=== PATIENT | female | born 1935 | race Caucasian/White ===

== ENCOUNTER 2018-08-31 16:00 | Inpatient (IN) | payer MEDICARE ==
[2018-08-31] MEDS ORDERED: Acetaminophen TAB* 325 MG PO PRN (16:19)
[2018-08-31] MEDS ORDERED: Ondansetron INJ* 2 MG/ML VIAL IV PRN (16:19)
[2018-08-31] MEDS ORDERED: Phytonadione Oral Solution* 5 MG/25 ML UDC PO ONE (16:35)
[2018-08-31] MEDS ORDERED: Artificial Tears* 15 ML BTL BOTH EYES PRN (16:38)
[2018-08-31] MEDS ORDERED: Ondansetron TAB* 4 MG PO PRN (16:38)
[2018-08-31] MEDS ORDERED: traMADol TAB* 50 MG PO PRN (16:38)
[2018-08-31] MEDS: Pantoprazole IV* 40 MG IV SCH (21:43)
[2018-09-01] MEDS ORDERED: Furosemide IV* 10 MG/ML 2 ML VIAL (20 MG) IV ONE (03:00)
[2018-09-01 04:53] LABS: ABS Basophils 0 10^3/ul (0-0.2); ABS Eosinophils 0 10^3/ul (0-0.6); ABS Lymphocytes 0.2 10^3/ul (1.0-4.8); ABS Monocytes 0.3 10^3/ul (0-0.8); ABS Neutrophils 2.2 10^3/ul (1.5-7.7); ABS Nucleated RBC 0 10^3/ul; Eosinophil % 0.6 %; Hematocrit 23 % (33-41); Hemoglobin 7.9 g/dL (12.0-16.0); Lymphocyte % 7.3 %; Mean Corpuscular HGB Conc 34 g/dL (31-36); Mean Corpuscular Hemoglobin 30 pg (27-31); Mean Corpuscular Volume 89 fL (80-97); Nucleated Red Blood Cells % 0.1; Platelet Count 193 10^3/uL (150-450); Red Blood Count 2.61 10^6 /uL (3.70-4.87); Red Cell Distribution Width 15 % (10.5-15); White Blood Count 2.8 10^3/uL (3.5-10.8)
[2018-09-01 04:58] LABS: INR 2.59 (0.77-1.02)
[2018-09-01 05:09] LABS: Albumin 3.5 g/dL (3.2-5.2); Albumin/Globulin Ratio 1.8 (1-3); BUN/Creatinine Ratio 13.1 (8-20); Calcium 8.1 mg/dL (8.6-10.3); EGFR African American 59.3 (>60); Globulin 1.9 g/dL (2-4); Total Bilirubin 1.6 mg/dL (0.2-1.0); Total Protein 5.4 g/dL (6.4-8.9)
[2018-09-01] MEDS: Levothyroxine TAB* 75 MCG TAB PO SCH ×2 (05:31→05:33)
[2018-09-01] MEDS: Pantoprazole IV* 40 MG IV SCH ×2 (08:12→22:18)
[2018-09-01] MEDS ORDERED: Phytonadione Oral Solution* 5 MG/25 ML UDC PO ONE (08:20)
[2018-09-01] MEDS: KCL 10 MEQ/50 ML IVPREMIX* 10 MEQ/50 ML BAG IV SCH ×3 (09:38→13:10)
[2018-09-01] MEDS: Losartan TAB* 25 MG PO SCH (09:39)
--- NOTE | 2018-09-01 10:23 | PN ---
Progress Note - Progress Note Date of Service: 09/01/18 SOAP: Subjective: [Patient reports she is feeling relatively well this am. No BMs overnight. No abd pain. First unit of blood before it was completely infused, she only received ~50% of the volume. The second unit was completed. So she received a total of ~1.5UPRBCs overnight.] Objective: [ Laboratory Results - last 24 hr 08/31/18 09/01/18 09/01/18 17:25 04:43 04:43 WBC 2.8 L RBC 2.61 L Hgb 7.9 L Hct 23 L MCV 89 MCH 30 MCHC 34 RDW 15 Plt Count 193 MPV 7.0 L Neut % (Auto) 80.8 Lymph % (Auto) 7.3 Robertson % (Auto) 11.0 Eos % (Auto) 0.6 Baso % (Auto) 0.3 Absolute Neuts (auto) 2.2 Absolute Lymphs (auto) 0.2 L Absolute Monos (auto) 0.3 Absolute Eos (auto) 0 Absolute Basos (auto) 0 Absolute Nucleated RBC 0 Nucleated RBC % 0.1 INR (Anticoag Therapy) Sodium 136 Potassium 3.0 L Chloride 101 Carbon Dioxide 30 Anion Gap 5 BUN 14 Creatinine 1.07 H Est GFR ( Amer) 59.3 Est GFR (Non-Af Amer) 49.0 BUN/Creatinine Ratio 13.1 Glucose 128 H Calcium 8.1 L Magnesium 2.0 Total Bilirubin 1.60 H AST 30 ALT 18 Alkaline Phosphatase 87 Total Protein 5.4 L Albumin 3.5 Globulin 1.9 L Albumin/Globulin Ratio 1.8 Blood Type A Positive Antibody Screen Negative Crossmatch See Detail 09/01/18 04:43 WBC RBC Hgb Hct MCV MCH MCHC RDW Plt Count MPV Neut % (Auto) Lymph % (Auto) Robertson % (Auto) Eos % (Auto) Baso % (Auto) Absolute Neuts (auto) Absolute Lymphs (auto) Absolute Monos (auto) Absolute Eos (auto) Absolute Basos (auto) Absolute Nucleated RBC Nucleated RBC % INR (Anticoag Therapy) 2.59 H Sodium Potassium Chloride Carbon Dioxide Anion Gap BUN Creatinine Est GFR ( Amer) Est GFR (Non-Af Amer) BUN/Creatinine Ratio Glucose Calcium Magnesium Total Bilirubin AST ALT Alkaline Phosphatase Total Protein Albumin Globulin Albumin/Globulin Ratio Blood Type Antibody Screen Crossmatch Acetaminophen (Tylenol Tab*) 650 mg PO Q4H PRN PRN Reason: FEVER/PAIN Furosemide (Lasix Iv*) 20 mg IV Q3H [facility] Stop: 09/01/18 14:01 Potassium Chloride (Potassium Chloride 10 Meq/50 Ml Ivpremix*) 10 meq in 50 mls @ 50 mls/hr IV Q1H [facility] Stop: 09/01/18 11:59 Last Admin: 09/01/18 09:38 Dose: 50 mls/hr Levothyroxine Sodium (Synthroid Tab*) 75 mcg PO 0600 [facility] Last Admin: 09/01/18 05:33 Dose: Not Given Losartan Potassium (Cozaar Tab*) 50 mg PO DAILY [facility] Last Admin: 09/01/18 09:39 Dose: 50 mg Ondansetron HCl (Zofran Inj*) 4 mg IV Q4H PRN PRN Reason: NAUSEA/VOMITING Pantoprazole Sodium (Protonix Iv*) 40 mg IV BID [facility] Last Admin: 09/01/18 08:12 Dose: 40 mg Polyvinyl Alcohol (Polyvinyl Alcohol 1.4% Opth*) 1 drop BOTH EYES Q2HR PRN PRN Reason: DRY EYE Last Admin: 08/31/18 21:43 Dose: 1 drp Tramadol HCl (Ultram*) 50 mg PO BID PRN PRN Reason: PAIN Vital Signs: Temp Pulse Resp BP Pulse Ox 96.5 F 107 16 127/69 99 09/01/18 07:39 09/01/18 07:39 09/01/18 08:00 09/01/18 07:39 09/01/18 07:39 Exam: Gen: Pale 82 yo female in NAD, sitting up in bed HEENT: MMM CV: RRR, no m/r/g Resp: CTA, no w/c/r Abd: soft, nonTTP with active bowel sounds Ext: trace LE edema bilaterally] Assessment: [82 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 GI bleed - received 1.5U PRBCs with appropriate response - INR improved by still 2.5 this am, will reverse further with FFP and additional vitamin K - EGD pending for this afternoon assuming her INR improves to at least <2, ideally <1.5 - currently NPO for EGD - cont 40 mg IV Protonix bid 2. Anticoagulation - INR improved from 3.9 to 2.5 with 10 mg vitamin K - give additional 5 mg vitamin K and 2U FFP today - repeat INR this afternoon 3. GIST - holding Gleevec pending results of EGD 4. Diastolic heart failure, chronic - no acute exacerbation Dispo: further treatment/discharge planning will depend on result of EGD]
[2018-09-01] MEDS: Furosemide IV* 10 MG/ML 2 ML VIAL (20 MG) IV SCH ×2 (14:27→19:11)
[2018-09-01 15:29] LABS: INR 1.48 (0.77-1.02)
[2018-09-01] MEDS ORDERED: fentaNYL* 50 MCG/ML 2 ML VIAL (100 MCG VIAL) ONE (16:51)
[2018-09-01] MEDS ORDERED: Midazolam* 1 MG/ML 10 ML VIAL (10 MG) ONE (16:51)
[2018-09-01] MEDS ORDERED: PEG 3000 GI LAVAGE* 1 GALLON PO ONE (17:13)
--- NOTE | 2018-09-01 17:15 | PN ---
Progress Note - Progress Note Date of Service: 09/01/18 Note: GI Brief EGD Note E: minimal irregular GEJ G: gastropathy, likely intestinal metaplasia, not sampled due to concern for bleeding D: normal to Prox Jej. No fresh or old blood on entire exam Rectal: maroon stool Will prep and plan colonoscopy for 09/02/18 Magen Ramirezan DO 09/01/18 [id number]
[2018-09-01] MEDS ORDERED: Furosemide IV* 10 MG/ML 2 ML VIAL (20 MG) ONE (19:09)
--- NOTE | 2018-09-01 21:11 | CONS ---
CC: Dr. Flores CONSULTATION REPORT: DATE OF CONSULT: 09/01/18 REASON FOR CONSULT: Melena, anemia. HISTORY OF PRESENT ILLNESS: This is a pleasant 82-year-old female with a history of GIST, initially diagnosed back in 2000, who has had a complicated course with multiple episodes of reoccurrence and d ebulking surgery done at [facility]. She had been tried on other tyrosine kinase inhibitors includ ing Sutent, but she had horrible effects including fatigue, mouth blisters, and hypertension and coul d not tolerate. She was switched to momelotinib in 2010 and then had pericarditis. Eventually, she w as switched back to Gleevec with a relatively long course. She presented to initially Dr. Flores's off ice on 08/31/18 because of progressive weakness. She states that she was not able to go very far wit hout feeling short of breath. She has had some increasing lower extremity edema, but denies jeniffer or thopnea. She noted that her stool had become black in color over the last week. She denies any iron pills or taking any Pepto-Bismol. She denies any abdominal discomfort. She denies any diarrhea or c onstipation. She occasionally has heartburn, but that seems to be relatively controlled. She denies any dysphagia or odynophagia. She cannot recall the last time that she had an endoscopic evaluation . However, review of records shows an EGD that was done in 2009 for melena that did not show any AVM or bleeding. She also had a colonoscopy without any evidence of overt bleeding. She previously had a capsule endoscopy before that, that did show AVMs. They appeared to be more in the jejunal compon ent based on the timestamps. At this point, she denies any further black in the stool or pain. The remainder of the 14-point review of systems is negative. PAST MEDICAL HISTORY: 1. AFib. 2. AVMs. 3. Cellulitis. 4. GIST. 5. Hypertension. 6. Hyperthyroidism. 7. BHANU, on CPAP. 8. Palpitations. PAST SURGICAL HISTORY: 1. Appendectomy. 2. Thyroid cyst removal. 3. Multiple debulking surgeries for tumor. MEDICATIONS: Home medications include: 1. Acetaminophen. 2. Alpha-E 400 units. 3. Artificial tears. 4. Calcium. 5. Coumadin. 6. Senna. 7. Furosemide. 8. Gleevec. 9. Levothyroxine. 10. Losartan. 11. Ondansetron. 12. Systane. 13. Tramadol. ALLERGIES: Include AZITHROMYCIN and PENICILLIN. FAMILY HISTORY: Father with lymphoma. No GI cancers or inflammatory bowel disease. SOCIAL HISTORY: Prior smoker until 1987. Denies jeniffer alcohol use. PHYSICAL EXAMINATION: Vital Signs: Blood pressure is 109/52, pulse is 86, she is 97% on room air, a febrile. General: Chronically ill-appearing, no acute distress. HEENT: Atraumatic, normocephalic. Pupils equal, round, reactive to light. Conjunctivae slightly pale. Sclerae anicteric. Neck: Supp le without masses. No gross JVD. Cardiovascular: Irregularly irregular. Respiratory: Grossly frankie ar to auscultation. Abdomen: Obese, soft, nontender, nondistended. Bowel sounds positive. Previou s abdominal scars. Extremities: Minimal lower extremity edema. Psych: Appropriate mood and affect. Skin: A few scattered ecchymoses. LABORATORY DATA: Hemoglobin 7.9, platelet count is 193. INR 1.48. Creatinine 1.07. Total bilirubi n 1.6. AST 30, ALT is 18. Albumin 3.5. Occult blood was positive. ASSESSMENT AND PLAN: An 82-year-old female with melena, acute blood loss anemia. 1. Acute blood loss anemia. She has a history of gastrointestinal stromal tumor. She did have a sma ll bowel capsule endoscopy roughly 8 years ago that did show some AVMs, especially within the proxima l portion. I think the consideration is her primary bleeding from her GIST or is this an arterioveno us malformation that is oozing or an additional source. We discussed the risks, benefits, and altern atives and would plan on upper endoscopy to evaluate given the melena that she has. Agree with IV PP I drip, hemoglobin and hematocrit every 6 hours. Keep 2 units of PRBCs on hold. Her INR has been ap propriately reversed from the initial 2.59 to 1.48 after vitamin K and FFP. She is to keep the head of the bed above 30 degrees at all times and keep the patient on oxygen therapy if needed. Further w orkup to be determined. 2. History of gastrointestinal stromal tumor. Has had multiple debulking surgeries. She states the previous surgeon at [place] was unwilling to do any further debulking. She was considering a trial at [facility] in [place], but did not want to travel and is unsure if she wants to pursue that . For the interim, she is continuing her Gleevec and is followed locally. [id number]/[facility] #: [id number]
--- NOTE | 2018-09-02 00:39 | PRO ---
CC: Dr. Chela Krishna; Dr. Salome Jerome PROCEDURE REPORT: DATE OF PROCEDURE: 09/01/18 INDICATION FOR PROCEDURE: Melena. PROCEDURE PERFORMED: Complete esophagogastroduodenoscopy. MEDICATIONS GIVEN: Include: 1. 5 mg IV midazolam. 2. 25 mcg IV fentanyl. DESCRIPTION OF PROCEDURE: After the EGD procedure including the risks, benefits, and alternatives wi th the risks not limited to perforation, surgery, missed lesions, and/or were explained to the patient, written informed consent was obtained, IV medication was given, and a bite block was placed between the teeth. The adult Olympus gastroscope was then inserted into the patient's oropharynx into the tubular esophagus. The tubular esophagus was grossly normal in appearance. The scope was then a dvanced through the lower esophageal sphincter into the stomach. There was evidence of gastropathy a nd some intestinal metaplasia. This was not sampled due to the concern for blood loss. There was no fresh or old blood noted within the stomach on both antegrade and retroflexion views. The scope was then advanced through the widely patent pylorus into the duodenal bulb, C loop, and distal duodenum. This was normal in appearance without any fresh or old blood. I then pushed as deep as I could to likely the proximal jejunum without any evidence of fresh or old blood. No AVMs were seen. The scop e was then removed from the patient. She tolerated the procedure well. She returned to the recover y room in stable condition. IMPRESSION: 1. Complete esophagogastroduodenoscopy. 2. No fresh or old blood on entire exam. 3. Gastropathy. 4. Likely intestinal metaplasia in the stomach. RECOMMENDATIONS: Repeat rectal exam did show maroon stool after the conclusion of the procedure. I discussed the risks, benefits, and alternatives to e valuation. The patient would like to proceed with colonoscopy to evaluate for a potential bleeding so urce. Her INR has been corrected at this time. We will plan on giving her preparation bernarda selby colonoscopy on 09/02/18. [id number]/[facility] #: [id number]
[2018-09-02] MEDS: Levothyroxine TAB* 75 MCG TAB PO SCH (05:26)
--- NOTE | 2018-09-02 07:53 | PN ---
Progress Note - Progress Note Date of Service: 09/02/18 SOAP: Subjective: feels ok this am. better than admission. EGD yesterday unrevealing so planned for colonoscopy this am. completed prep and now just passing yellow liquid. Objective: Vital Signs Temp Pulse Resp BP Pulse Ox 99.4 F 85 20 118/61 99 09/02/18 03:17 09/02/18 03:17 09/02/18 03:17 09/02/18 03:17 09/02/18 03:17 sitting up in nad adentulous dry op regular II/ ABRAHAN cta bl soft obese nt 1+ LE edema to mid meyers A+O x3, grossly nonfocal Acetaminophen (Tylenol Tab*) 650 mg PO Q4H PRN PRN Reason: FEVER/PAIN Levothyroxine Sodium (Synthroid Tab*) 75 mcg PO 0600 [facility] Last Admin: 09/02/18 05:26 Dose: Not Given Losartan Potassium (Cozaar Tab*) 50 mg PO DAILY [facility] Last Admin: 09/01/18 09:39 Dose: 50 mg Ondansetron HCl (Zofran Inj*) 4 mg IV Q4H PRN PRN Reason: NAUSEA/VOMITING Pantoprazole Sodium (Protonix Iv*) 40 mg IV BID [facility] Last Admin: 09/01/18 22:18 Dose: 40 mg Polyvinyl Alcohol (Polyvinyl Alcohol 1.4% Opth*) 1 drop BOTH EYES Q2HR PRN PRN Reason: DRY EYE Last Admin: 08/31/18 21:43 Dose: 1 drp Tramadol HCl (Ultram*) 50 mg PO BID PRN PRN Reason: PAIN Assessment: 82 yo female with recurrent GIST currently treated with Gleevec p/w GI bleed, EGD without source so pending colonoscopy this am. Plan: 1.GI bleed -sp 3 u PRBC, pale this am but Hb pending, will likely need another unit of blood - currently NPO for colonoscopy - cont 40 mg IV Protonix bid 2. Anticoagulation -hold off on coumadin given GI bleed and recent reversal -check INR this am 3. GIST - holding Gleevec pending results of colonoscopy 4. Diastolic heart failure, chronic - no acute exacerbation Dispo: further treatment/discharge planning will depend on result of colonoscopy
[2018-09-02 08:00] LABS: ABS Basophils 0 10^3/ul (0-0.2); ABS Eosinophils 0 10^3/ul (0-0.6); ABS Lymphocytes 0.2 10^3/ul (1.0-4.8); ABS Monocytes 0.3 10^3/ul (0-0.8); ABS Neutrophils 2.1 10^3/ul (1.5-7.7); ABS Nucleated RBC 0 10^3/ul; Eosinophil % 0.6 %; Hematocrit 22 % (33-41); Hemoglobin 7.5 g/dL (12.0-16.0); Lymphocyte % 8.1 %; Mean Corpuscular HGB Conc 34 g/dL (31-36); Mean Corpuscular Hemoglobin 30 pg (27-31); Mean Corpuscular Volume 90 fL (80-97); Mean Platelet Volume 6.9 fL (7.4-10.4); Nucleated Red Blood Cells % 0.1; Platelet Count 173 10^3/uL (150-450); Red Blood Count 2.49 10^6 /uL (3.70-4.87); Red Cell Distribution Width 16 % (10.5-15); White Blood Count 2.7 10^3/uL (3.5-10.8)
[2018-09-02 08:06] LABS: INR 1.23 (0.77-1.02)
[2018-09-02 08:16] LABS: Albumin 3.7 g/dL (3.2-5.2); Albumin/Globulin Ratio 1.9 (1-3); BUN/Creatinine Ratio 11.8 (8-20); Calcium 8.7 mg/dL (8.6-10.3); EGFR African American 69.7 (>60); EGFR Non-African American 57.6 (>60); Potassium 3.1 mmol/L (3.5-5.0); Total Bilirubin 1.5 mg/dL (0.2-1.0); Total Protein 5.7 g/dL (6.4-8.9)
[2018-09-02] MEDS: Pantoprazole IV* 40 MG IV SCH ×2 (08:40→21:28)
[2018-09-02] MEDS: Losartan TAB* 25 MG PO SCH (08:40)
[2018-09-02] MEDS: KCL 10 MEQ/50 ML IVPREMIX* 10 MEQ/50 ML BAG IV SCH ×4 (09:00→17:06)
[2018-09-02] MEDS ORDERED: Midazolam* 1 MG/ML 10 ML VIAL (10 MG) ONE (10:49)
[2018-09-02] MEDS ORDERED: fentaNYL* 50 MCG/ML 2 ML VIAL (100 MCG VIAL) ONE (10:49)
--- NOTE | 2018-09-02 12:00 | PN ---
Progress Note - Progress Note Date of Service: 09/02/18 Note: GI Brief Colon Note colon to prox sig/distal descend limited by adhesions Diverticulosis No fresh or old blood Rec: AVMs on capsule in 2009 May have been source here vs other. Higher risk for anticoagulation from GI POV, would consider risks vs. benefits of warfarin therapy with strong consideration for discontinuation. OK for Gleevac. Magen Campbell 09/02/18 1200
[2018-09-02] MEDS ORDERED: KCL 10 MEQ/50 ML IVPREMIX* 10 MEQ/50 ML BAG ONE (17:01)
[2018-09-02] MEDS: Potassium Chlor TAB* 20 MEQ TAB.ER PO SCH (17:06)
[2018-09-03] MEDS ORDERED: Furosemide IV* 10 MG/ML 2 ML VIAL (20 MG) IV ONE (01:45)
--- NOTE | 2018-09-03 04:59 | PRO ---
CC: Chela Krishna MD; Salome Jerome MD * COLONOSCOPY REPORT: DATE OF PROCEDURE: 09/02/18 - ROOM #[id number] INDICATION FOR PROCEDURE: Melena. PROCEDURE PERFORMED: Colonoscopy to the proximal sigmoid colon limited by adhesions from prior surgery. MEDICATIONS GIVEN: Include Midazolam 5 mg IV, Fentanyl 25 mcg IV. DESCRIPTION OF PROCEDURE: After the colonoscopy procedure including the risks, benefits, and alternatives with the risks not limited to perforation, surgery, missed lesions, and/or were explained to the patient, written informed consent was obtained. IV medication was given and a rectal exam was performed. The rectal exam was unremarkable without any fresh or old blood. Initially, the adult Olympus colonoscope was then inserted into the patient's rectum and advanced very carefully through the tortuous sigmoid colon at the proximal portion of this. I was unable to advance further secondary to adhesions and sharp angulation. I then switched to a pediatric colonoscope and unfortunately encountered the same resistance at that point. Despite multiple position changes and nursing assistance with pressure, it was unable to successfully navigate this area beyond the distal descending colon to proximal sigmoid. The decision was then made to not push any further secondary to being a nonsurgical candidate and no active bleeding noted. Inspection of the third of the colon that was viewed revealed an excellent prep. No fresh or old blood. She does have moderate to severe diverticulosis coli throughout. No AVMs or vascular malformations were identified. On return to the rectum, direct views were normal. On retroflexion, grade 1 internal hemorrhoids were appreciated. The scope was then removed from the patient. She tolerated the procedure well. She returned to the recovery room in stable condition. IMPRESSION: 1. Colonoscopy to the proximal sigmoid limited by adhesions and diverticulosis. 2. Good prep. 3. [id number] diverticulosis coli. 4. No fresh or old blood on entire exam. 5. No arteriovenous malformation or vascular malformations identified. RECOMMENDATIONS: On capsule endoscopy in 2009, she had multiple AVMs throughout the small bowel. I suspect AVMs could be the source here, however, was unable to see on the right side of the colon, so cannot extrapolate too far with that. I think that she is at a higher risk for rebleeding with concurrent Gleevec therapy and warfarin. I think at this point the risks and benefits of warfarin therapy need to be strongly looked at and I think her risk of rebleeding is high. [id number]/[facility] #: [id number] BERNARD
[2018-09-03 06:02] LABS: ABS Basophils 0 10^3/ul (0-0.2); ABS Eosinophils 0 10^3/ul (0-0.6); ABS Lymphocytes 0.4 10^3/ul (1.0-4.8); ABS Monocytes 0.4 10^3/ul (0-0.8); ABS Neutrophils 3.4 10^3/ul (1.5-7.7); ABS Nucleated RBC 0 10^3/ul; Eosinophil % 0.4 %; Hematocrit 25 % (33-41); Hemoglobin 8.6 g/dL (12.0-16.0); Lymphocyte % 8.5 %; Mean Corpuscular HGB Conc 34 g/dL (31-36); Mean Corpuscular Hemoglobin 31 pg (27-31); Mean Corpuscular Volume 89 fL (80-97); Mean Platelet Volume 6.7 fL (7.4-10.4); Nucleated Red Blood Cells % 0; Platelet Count 177 10^3/uL (150-450); Red Blood Count 2.81 10^6 /uL (3.70-4.87); Red Cell Distribution Width 16 % (10.5-15); White Blood Count 4.2 10^3/uL (3.5-10.8)
[2018-09-03] MEDS: Levothyroxine TAB* 75 MCG TAB PO SCH (06:07)
[2018-09-03 06:19] LABS: Albumin 3.5 g/dL (3.2-5.2); Albumin/Globulin Ratio 1.8 (1-3); BUN/Creatinine Ratio 11.8 (8-20); Calcium 8.5 mg/dL (8.6-10.3); EGFR African American 69.7 (>60); EGFR Non-African American 57.6 (>60); Globulin 1.9 g/dL (2-4); Magnesium 1.9 mg/dL (1.9-2.7); Potassium 3.9 mmol/L (3.5-5.0); Total Bilirubin 1.7 mg/dL (0.2-1.0); Total Protein 5.4 g/dL (6.4-8.9)
[2018-09-03] MEDS: Potassium Chlor TAB* 20 MEQ TAB.ER PO SCH (08:37)
[2018-09-03] MEDS: Losartan TAB* 25 MG PO SCH (08:37)
[2018-09-03] MEDS: Pantoprazole IV* 40 MG IV SCH (08:38)
[2018-09-03 12:05] VITALS: BP 134/76
--- NOTE | 2018-09-03 13:21 | PN ---
Progress Note - Progress Note Date of Service: 09/03/18 Note: Time spent on discharge including exam of patioent, discussion with patient, , nurse, review of EMR and preparation of discharge documents is 45 minutes.
--- NOTE | 2018-09-03 21:25 | DS ---
CC: Dr. Jerome; Dr. Campbell; Dr. Flores * DISCHARGE SUMMARY: DATE OF ADMISSION: DATE OF DISCHARGE: 09/03/18 HISTORY OF PRESENT ILLNESS/HOSPITAL COURSE: This 82-year-old woman presented with melena and anemia. To me, she described having brown stool and sometimes blood when she wiped herself; however, she had a significant drop in her hematocrit from recent values. On admission, her hematocrit was 18, one the month before was 28. Her INR on admission was 3.94. She was given vitamin K and her INR came down to 1.23 before discharge. The patient received 3 units of packed cells and 2 units of fresh frozen plasma during this hospital stay. On the day of discharge, her hematocrit was 25, hemoglobin 8.6. She felt well. She was no longer having any bleeding. She underwent endoscopy by Dr. Campbell. She underwent colonoscopy which was limited by adhesions and the entire colon was not visualized. No bleeding source was identified. The patient will see Dr. Flores the day after discharge in his office. If indicated, he can instruct her to restart her Gleevec. I have instructed the patient also to not take warfarin until further notice from one of her providers. FINAL DIAGNOSES: 1. Gastrointestinal bleeding of unknown source. 2. Atrial fibrillation, on warfarin. 3. Gastrointestinal stromal tumor. 4. Chronic diastolic heart failure. 5. History of smoking, O2 saturation 96% on room air on day of discharge. DISCHARGE MEDICATIONS: 1. Vitamin B with vitamin C 1 daily. 2. Losartan 50 mg daily. 3. Levothyroxine 75 mcg daily. 4. Propylene glycol 1 to 2 drops both eyes p.r.n. 5. Vitamin D with calcium 500 mg daily. 6. Sennosides/docusate as directed. 7. Acetaminophen 500 mg daily. 8. Tramadol 50 mg b.i.d. p.r.n. CONDITION ON DISCHARGE: Stable. DISPOSITION ON DISCHARGE: Discharged home. [id number]/[facility] #: [id number] BERNARD
== END 2018-09-03 14:40 | disposition home or self-care (01) | DRG 378 ==
LOC: MED 16:45 → OBSVTOIN 16:45
PROVIDERS: ADMIT Internal Medicine Hematology & Oncology; ATTEND Internal Medicine Hematology & Oncology
PROC: 30233K1 Transfusion of Nonautologous Frozen Plasma into Peripheral Vein, Percutaneous Approach (ICD-10-PCS; principal; 2018-08-31)
PROC: 30233N1 Transfusion of Nonautologous Red Blood Cells into Peripheral Vein, Percutaneous Approach (ICD-10-PCS; 2018-08-31)
PROC: 0DJ08ZZ Inspection of Upper Intestinal Tract, Via Natural or Artificial Opening Endoscopic (ICD-10-PCS; 2018-09-01)
PROC: 0DJD8ZZ Inspection of Lower Intestinal Tract, Via Natural or Artificial Opening Endoscopic (ICD-10-PCS; 2018-09-02)
DX: K92.1 Melena (principal); C49.A9 Gastrointestinal stromal tumor of other sites; I50.32 Chronic diastolic (congestive) heart failure; I13.0 Hypertensive heart and chronic kidney disease with heart failure and stage 1 through stage 4 chronic kidney disease, or unspecified chronic kidney disease; Q27.30 Arteriovenous malformation, site unspecified; D62 Acute posthemorrhagic anemia; C17.9 Malignant neoplasm of small intestine, unspecified; I48.91 Unspecified atrial fibrillation; G47.33 Obstructive sleep apnea (adult) (pediatric); N18.3 Chronic kidney disease, stage 3 (moderate); R00.2 Palpitations; K66.0 Peritoneal adhesions (postprocedural) (postinfection); K57.30 Diverticulosis of large intestine without perforation or abscess without bleeding; E03.9 Hypothyroidism, unspecified; Z79.01 Long term (current) use of anticoagulants; Z87.891 Personal history of nicotine dependence; Z88.1 Allergy status to other antibiotic agents; Z88.0 Allergy status to penicillin; Z79.1 Long term (current) use of non-steroidal anti-inflammatories (NSAID); Z79.899 Other long term (current) drug therapy; Z83.3 Family history of diabetes mellitus; Z82.49 Family history of ischemic heart disease and other diseases of the circulatory system; Z80.6 Family history of leukemia; Z80.7 Family history of other malignant neoplasms of lymphoid, hematopoietic and related tissues; Z80.52 Family history of malignant neoplasm of bladder; Z80.1 Family history of malignant neoplasm of trachea, bronchus and lung; Z80.8 Family history of malignant neoplasm of other organs or systems
CPT/HCPCS: 36415; 80053; 82272; 83735; 85025; 85610; 86850; 86900; 86901; 86922; 86927; 99156; 99157; 99222; 99232; A9270-GY; J1940; J2250; J3010; J3480; P9017; P9040

== ENCOUNTER 2018-09-08 12:34 | Inpatient (IN) | payer MEDICARE ==
[2018-09-08] MEDS ORDERED: traMADol TAB* 50 MG PO PRN (14:43)
[2018-09-08] MEDS ORDERED: Senna TAB PO PRN (14:43)
[2018-09-08] MEDS ORDERED: Ondansetron INJ* 2 MG/ML VIAL IV PRN (15:04)
[2018-09-08] MEDS ORDERED: oxyCODONE/Acetamin 5/325 MG* TAB PO PRN (15:04)
[2018-09-08] MEDS ORDERED: Furosemide IV* 10 MG/ML 2 ML VIAL (20 MG) IV ONE (15:09)
[2018-09-08] MEDS ORDERED: Docusate CAP* 100 MG PO PRN (16:23)
--- NOTE | 2018-09-08 17:06 | ECHO ---
*[facility]* [place] [address] Fax #: [phone] Transthoracic Echocardiogram Patient: Rickey, Height: 61 in / Nguyen Yates 154.9 cm : 1935 Weight: 176.6 lb / Study Date: 09/08/2018 80.3 kg Age: 82 BP: 157 / 80 Gender: F BMI/BSA: 33.4 kg/m^2 HR: 95 bpm / 1.79 m^2 *Wildlife Biology Technician: * Emerald Monique *Referring Physician: * Joel Flores *Reading Physician: * Brendan Watt Indications: Congestive Heart Failure. History: PMH: Atrial fibrillation. Risk factors: Former tobacco use. Hypertension. GI stomal tumor cancer, s/p oral chemotherapy, BHANU. Conclusions Summary: 1. Impressions: These findings are new since the previous study 09/20/2016, now there is subtle mild decrease in overall left ventricle ejection fraction from 50-55% then. 2. Left ventricle: The cavity size is below normal. Wall thickness is normal. Systolic function is mildly reduced. The estimated ejection fraction is 45-50%, by visual assessment, closer to 45%. Mild diffuse hypokinesis. Left ventricular diastolic function parameters are indeterminate. 3. Right ventricle: The cavity size is mildly dilated. 4. Left atrium: The atrium is mildly to moderately dilated. 5. Right atrium: The atrium is mildly to moderately dilated. 6. Mitral valve: There is mild to moderate regurgitation. 7. Aortic valve: Thickening, consistent with sclerosis. 8. Tricuspid valve: There is severe regurgitation. 9. Pericardium, extracardiac: There is a left pleural effusion. 10. Pulmonary arteries: Systolic pressure is moderately increased, estimated to be 46 mm Hg. Study data: Transthoracic echocardiogram. Procedure: Transthoracic echocardiography was performed. Image quality was good. Complete 2D, spectral Doppler, and color flow Doppler. Location: Bedside. Patient status: Inpatient. Patient room number: 447-2. Rhythm: Atrial fibrillation. Findings Left ventricle: The cavity size is below normal. Wall thickness is normal. Systolic function is mildly reduced. The estimated ejection fraction is 45-50%, by visual assessment, closer to 45%. Mild diffuse hypokinesis. Left ventricular diastolic function parameters are indeterminate. Right ventricle: The cavity size is mildly dilated. Systolic function is low normal. Ventricular septum: There is septal flattening of the interventricular septum consistent with RV volume or pressure overload. Left atrium: The atrium is mildly to moderately dilated. Right atrium: The atrium is mildly to moderately dilated. Mitral valve: The leaflets are mildly thickened. There is no evidence of stenosis. There is mild to moderate regurgitation. The peak diastolic gradient is 2.9 mm Hg. Aortic valve: The valve is trileaflet. The leaflets are mildly thickened. Thickening, consistent with sclerosis. There is no evidence of stenosis. There is trivial regurgitation. The mean systolic gradient is 3.0 mm Hg. The peak systolic gradient is 5.0 mm Hg. Tricuspid valve: The leaflets are mildly thickened. There is no evidence of stenosis. There is severe regurgitation. Hepatic obdulia flow reversal is present Pulmonic valve: The leaflets are normal thickness. There is no evidence of stenosis. There is trivial regurgitation. The peak systolic gradient is 2.0 mm Hg. Aorta: Ascending aorta: The ascending aorta is appears normal. The aortic root is not dilated. Pericardium: There is no pericardial effusion. There is a left pleural effusion. Pulmonary arteries: Not well visualized. Systolic pressure is moderately increased, estimated to be 46 mm Hg. Systemic veins: Inferior vena cava: The vessel is dilated. The respirophasic diameter changes are blunted (< 50%). Measurements Left ventricle Value Ref Right atrium Value Ref PRISCILLA, LAX (L) 3.6 cm 3.8 - 5.2 SI dim, ES (H) 5.6 cm 3.4 - ESD, LAX 3.0 cm 2.2 - 3.5 5.3 FS, LAX (L) 16 % 27 - 45 ML dim, ES, A4C (H) 4.8 cm 2.6 - PW, ED, LAX 0.9 cm 0.6 - 0.9 4.4 PW/ID, ED, LAX 0.24 --------- PRISCILLA (L) 3.6 cm 3.8 - 5.2 Aortic valve Value Ref ESD 3.0 cm 2.2 - 3.5 Jayne diam, ED 1.8 cm ------- FS (L) 16 % 27 - 45 Peak v, S 1.15 m/sec ------- PW, ED 0.9 cm 0.6 - 0.9 Mean v, S 0.75 m/sec ------- EF (L) 34 % 54 - 74 VTI, S 19.6 cm ------- Mass 87 g 66 - 150 Mean grad, S 3.0 mm Hg ------- Mass/bsa 48 g/m^2 44 - 88 Peak grad, S 5.0 mm Hg ------- Mass/ht 55.90 g/m --------- Mass/ht^2.7 26.56 g/m^2.7 --------- Mitral valve Value Ref E', lat jayne, TDI 10.0 cm/sec >=10.0 Peak E 0.85 m/sec - ------ E/e', lat jayne, 9 --------- Peak A 0 m/sec ---- --- TDI Decel time 194 ms ------- E', med jayne, TDI 7.8 cm/sec >=7.0 Peak grad, D 2.9 mm Hg - ------ E/e', med jayne, 11 --------- Peak E/A ratio 854 ---- --- TDI E', avg, TDI 8.9 cm/sec --------- Tricuspid valve Value Ref E/e', avg, TDI 10 <=14 TR peak v 2.8 m/sec &l t;=2.8 Peak RV-RA grad, 31 mm Hg ------- LVOT Value Ref S Peak nabila, S 0.67 m/sec --------- Mean nabila, S 0.44 m/sec --------- Aortic root Value Ref Mean grad, S 1 mm Hg --------- Root diam 3.0 cm <4.0 Ventricular septum Value Ref Ascending aorta Value Ref IVS, ED, LAX 0.8 cm 0.6 - 0.9 AAo AP diam, S 3.1 cm ------- IVS, ED 0.8 cm 0.6 - 0.9 AAo AP diam/bsa, 1.7 cm/m^2 ------- S Right ventricle Value Ref PRISCILLA, LAX 4.4 cm --------- Aortic arch Value Ref PRISCILLA minor ax, A4C (H) 4.7 cm 1.9 - 3.5 Arch diam 3.1 cm ------- mid Arch diam/bsa 1.7 cm/m^2 ------- Left atrium Value Ref Decending aorta Value Ref AP dim, ES (H) 4.60 cm 2.70 - Eddie peak nabila 0.55 m/sec ------- 3.80 ML dim, A4C 4.8 cm --------- Inferior vena cava Value Ref Vol/bsa, ES, 1-p 33 ml/m^2 11 - 40 Diam 3.6 cm ------- A4C Vol/bsa, ES, A/L (H) 41 ml/m^2 16 - 34 Legend: (L) and (H) rosa values outside specified reference range. Prepared and electronically signed by Brendan Watt 09/08/2018 17:05
[2018-09-08] MEDS: Enoxaparin(*) 30 MG/0.3 ML SYR SUBCUT SCH (17:15)
[2018-09-08] MEDS ORDERED: Iodixanol* (CONTRAST) 320 MG/ML 100 ML SDV IV ONE (17:45)
[2018-09-08] MEDS: Zolpidem TAB* 5 MG PO SCH (20:48)
[2018-09-09] MEDS: Artificial Tears* 15 ML BTL BOTH EYES PRN ×5 (00:59→21:15)
[2018-09-09] MEDS: Acetaminophen TAB* 325 MG PO PRN ×2 (05:33→23:50)
[2018-09-09] MEDS: Levothyroxine TAB* 75 MCG TAB PO SCH (05:34)
[2018-09-09 06:19] LABS: ABS Basophils 0 10^3/ul (0-0.2); ABS Eosinophils 0.1 10^3/ul (0-0.6); ABS Lymphocytes 0.4 10^3/ul (1.0-4.8); ABS Monocytes 0.8 10^3/ul (0-0.8); ABS Neutrophils 3.9 10^3/ul (1.5-7.7); ABS Nucleated RBC 0 10^3/ul; Eosinophil % 1.6 %; Hematocrit 30 % (33-41); Hemoglobin 9.9 g/dL (12.0-16.0); Lymphocyte % 7.3 %; Mean Corpuscular HGB Conc 33 g/dL (31-36); Mean Corpuscular Hemoglobin 30 pg (27-31); Mean Corpuscular Volume 92 fL (80-97); Mean Platelet Volume 7.5 fL (7.4-10.4); Nucleated Red Blood Cells % 0.1; Platelet Count 237 10^3/uL (150-450); Red Blood Count 3.26 10^6 /uL (3.70-4.87); Red Cell Distribution Width 17 % (10.5-15); White Blood Count 5.1 10^3/uL (3.5-10.8)
[2018-09-09 06:41] LABS: Albumin 3.7 g/dL (3.2-5.2); Calcium 8.6 mg/dL (8.6-10.3); Potassium 3.1 mmol/L (3.5-5.0); Total Bilirubin 1.8 mg/dL (0.2-1.0)
[2018-09-09 06:47] LABS: Albumin/Globulin Ratio 1.7 (1-3); BUN/Creatinine Ratio 15.9 (8-20); EGFR African American 98.3 (>60); EGFR Non-African American 81.3 (>60); Globulin 2.2 g/dL (2-4); Total Protein 5.9 g/dL (6.4-8.9)
[2018-09-09] MEDS: Losartan TAB* 25 MG PO SCH (08:25)
[2018-09-09] MEDS: Calcium/Vitamin D TAB 250/125* TAB PO SCH (08:26)
[2018-09-09] MEDS ORDERED: Furosemide IV* 10 MG/ML 2 ML VIAL (20 MG) IV ONE (08:35)
--- NOTE | 2018-09-09 08:41 | PN ---
Progress Note - Progress Note Date of Service: 09/09/18 SOAP: Subjective: []Feels better today. Breathing was improved walking to bathroom this am. Still very SOB from baseline. Feels hungry for breakfast. No fever or chills. Not dizzy getting out of bed. Acetaminophen (Tylenol Tab*) 650 mg PO Q4H PRN PRN Reason: FEVER/PAIN Last Admin: 09/09/18 05:33 Dose: 650 mg Calcium/Vitamin D (Oscal D Tab 250/125*) 2 tab PO DAILY [facility] Last Admin: 09/09/18 08:26 Dose: 2 tab Docusate Sodium (Colace Cap*) 100 mg PO DAILY PRN PRN Reason: CONSTIPATION Enoxaparin Sodium (Lovenox(*)) 30 mg SUBCUT Q24H [facility] Last Admin: 09/08/18 17:15 Dose: 30 mg Furosemide (Lasix Iv*) 20 mg IV ONCE ONE Stop: 09/09/18 08:36 Levothyroxine Sodium (Synthroid Tab*) 75 mcg PO DAILY@0600 [facility] Last Admin: 09/09/18 05:34 Dose: 75 mcg Losartan Potassium (Cozaar Tab*) 50 mg PO DAILY [facility] Last Admin: 09/09/18 08:25 Dose: 50 mg Nft: B-Complex With (Vitamin C 1 Cap) 1 cap PO DAILY [facility] Ondansetron HCl (Zofran Inj*) 4 mg IV Q4H PRN PRN Reason: NAUSEA/VOMITING Oxycodone/Acetaminophen (Percocet 5/325 Tab*) 1 tab PO Q4H PRN PRN Reason: Pain Polyvinyl Alcohol (Polyvinyl Alcohol 1.4% Opth*) 1 drop BOTH EYES Q4H PRN PRN Reason: DRY EYE Last Admin: 09/09/18 05:34 Dose: 1 drop Potassium Chloride (Klor Con Er Tab*) 20 meq PO TID [facility] Stop: 09/10/18 08:59 Senna (Senokot Tab*) 1 tab PO DAILY PRN PRN Reason: CONSTIPATION Tramadol HCl (Ultram*) 50 mg PO BID PRN PRN Reason: PAIN Zolpidem Tartrate (Ambien Tab*) 5 mg PO BEDTIME [facility] Last Admin: 09/08/18 20:48 Dose: 5 mg Objective: [] Vital Signs Temp Pulse Resp BP Pulse Ox 98.4 F 85 19 142/78 96 09/09/18 07:48 09/09/18 07:48 09/09/18 07:48 09/09/18 07:48 09/09/18 08:19 HEENT: pale, OM moist, no lesions Neck + JVD CTA RRR on exam at this time S2S1, 90s +BS, mass palpable, non tender +1 IKE Echo - New decreased EF to 45%, increased R sided pressures CT - No PE, Increase in liver lesions by 1 cm from July, peritoneal disease is stable. 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 Admitted earlier in month for GIB s/p 4 U PRBC total. Re-presented with SOB and tachycardia. Evaluation c/w progressive cancer as expected and acute CHF. Improved yesterday with diuretics. Plan: []1. CHF. - Continue gradual negative fluid balance, give Lasix 20 IV x 1 now. - Check BNP daily 2. Afib. Tachycardia. Metoprolol 25 mg po q 6. 3. FEN. Replete K with K-dur 20 carlene tid, check Mg 4. GIB. Stable, follow Hgb and she is off anticoagulation. 5. GIST. She has refractory disease, no additional therapy. - DNR - Hospice consult and will d/c with hospice.
[2018-09-09] MEDS: B COMPLEX WITH VITAMIN C PO SCH (09:16)
[2018-09-09] MEDS: Potassium Chlor TAB* 20 MEQ TAB.ER PO SCH ×3 (09:25→21:15)
[2018-09-09] MEDS: Metoprolol Tartrate TAB* 25 MG PO SCH ×2 (09:25→21:15)
[2018-09-09 11:02] LABS: Magnesium 1.9 mg/dL (1.9-2.7)
[2018-09-09] MEDS: Enoxaparin(*) 30 MG/0.3 ML SYR SUBCUT SCH (15:23)
[2018-09-09] MEDS: Zolpidem TAB* 5 MG PO SCH (21:15)
[2018-09-10] MEDS: Artificial Tears* 15 ML BTL BOTH EYES PRN ×2 (04:05→14:03)
[2018-09-10] MEDS: Levothyroxine TAB* 75 MCG TAB PO SCH (05:57)
[2018-09-10 07:58] LABS: ABS Basophils 0 10^3/ul (0-0.2); ABS Eosinophils 0.1 10^3/ul (0-0.6); ABS Lymphocytes 0.3 10^3/ul (1.0-4.8); ABS Monocytes 0.6 10^3/ul (0-0.8); ABS Neutrophils 3.7 10^3/ul (1.5-7.7); ABS Nucleated RBC 0 10^3/ul; Eosinophil % 1.1 %; Hematocrit 31 % (33-41); Hemoglobin 10.1 g/dL (12.0-16.0); Lymphocyte % 6.1 %; Mean Corpuscular HGB Conc 33 g/dL (31-36); Mean Corpuscular Hemoglobin 31 pg (27-31); Mean Corpuscular Volume 93 fL (80-97); Mean Platelet Volume 7.7 fL (7.4-10.4); Nucleated Red Blood Cells % 0.3; Platelet Count 268 10^3/uL (150-450); Red Blood Count 3.29 10^6 /uL (3.70-4.87); Red Cell Distribution Width 17 % (10.5-15); White Blood Count 4.7 10^3/uL (3.5-10.8)
[2018-09-10 08:18] LABS: Albumin 3.7 g/dL (3.2-5.2); Albumin/Globulin Ratio 1.5 (1-3); BUN/Creatinine Ratio 18.7 (8-20); Calcium 8.9 mg/dL (8.6-10.3); EGFR African American 89.3 (>60); EGFR Non-African American 73.8 (>60); Globulin 2.5 g/dL (2-4); Magnesium 1.9 mg/dL (1.9-2.7); Potassium 3.9 mmol/L (3.5-5.0); Total Bilirubin 1.5 mg/dL (0.2-1.0); Total Protein 6.2 g/dL (6.4-8.9)
[2018-09-10] MEDS: B COMPLEX WITH VITAMIN C PO SCH (08:27)
[2018-09-10] MEDS: Losartan TAB* 25 MG PO SCH (09:08)
[2018-09-10] MEDS: Calcium/Vitamin D TAB 250/125* TAB PO SCH (09:08)
[2018-09-10] MEDS: Metoprolol Tartrate TAB* 25 MG PO SCH ×2 (09:08→21:51)
[2018-09-10] MEDS: Enoxaparin(*) 30 MG/0.3 ML SYR SUBCUT SCH (15:10)
[2018-09-10] MEDS ORDERED: Artificial Tears* 15 ML BTL BOTH EYES PRN (16:00)
[2018-09-10] MEDS ORDERED: Furosemide IV* 10 MG/ML 2 ML VIAL (20 MG) IV ONE (18:00)
--- NOTE | 2018-09-10 18:16 | PN ---
Subjective Date of Service: 09/10/18 Interval History: Patient had dyspnea when not wearing oxygen. She took it off for dinner, and then went to , and felt very SOB. Denies pain. Family History: Unchanged from Admission Social History: Unchanged from Admission Past Medical History: Unchanged from Admission Objective Active Medications: Acetaminophen (Tylenol Tab*) 650 mg PO Q4H PRN PRN Reason: FEVER/PAIN Last Admin: 09/09/18 23:50 Dose: 650 mg Calcium/Vitamin D (Oscal D Tab 250/125*) 2 tab PO DAILY [facility] Last Admin: 09/10/18 09:08 Dose: 2 tab Docusate Sodium (Colace Cap*) 100 mg PO DAILY PRN PRN Reason: CONSTIPATION Enoxaparin Sodium (Lovenox(*)) 30 mg SUBCUT Q24H [facility] Last Admin: 09/10/18 15:10 Dose: 30 mg Levothyroxine Sodium (Synthroid Tab*) 75 mcg PO DAILY@0600 [facility] Last Admin: 09/10/18 05:57 Dose: 75 mcg Losartan Potassium (Cozaar Tab*) 50 mg PO DAILY [facility] Last Admin: 09/10/18 09:08 Dose: 50 mg Metoprolol Tartrate (Lopressor Tab*) 25 mg PO BID [facility] Last Admin: 09/10/18 09:08 Dose: 25 mg Nft: B-Complex With (Vitamin C 1 Cap) 1 cap PO DAILY [facility] Last Admin: 09/10/18 08:27 Dose: Not Given Ondansetron HCl (Zofran Inj*) 4 mg IV Q4H PRN PRN Reason: NAUSEA/VOMITING Oxycodone/Acetaminophen (Percocet 5/325 Tab*) 1 tab PO Q4H PRN PRN Reason: Pain Polyvinyl Alcohol (Polyvinyl Alcohol 1.4% Opth*) 1 drop BOTH EYES . NEEDED PRN PRN Reason: DRY EYE Last Admin: 09/10/18 17:28 Dose: 1 drop Senna (Senokot Tab*) 1 tab PO DAILY PRN PRN Reason: CONSTIPATION Tramadol HCl (Ultram*) 50 mg PO BID PRN PRN Reason: PAIN Zolpidem Tartrate (Ambien Tab*) 5 mg PO BEDTIME [facility] Last Admin: 09/09/18 21:15 Dose: 5 mg Vital Signs - 8 hr 04/09/10/18 09/10/18 11:56 16:20 16:21 Temperature 36.7 C 36.3 C 36.3 C Pulse Rate 79 95 37 Respiratory 19 36 Rate Blood Pressure 157/90 155/103 160/95 (mmHg) O2 Sat by Pulse 100 97 97 Oximetry Oxygen Devices in Use Now: Nasal Cannula Appearance: alert, no distress Ears/Nose/Mouth/Throat: Clear Oropharnyx Neck: NL Appearance and Movements; NL JVP Respiratory: Symmetrical Chest Expansion and Respiratory Effort Cardiovascular: NL Sounds; No Murmurs; No JVD, RRR Abdominal: No Hepatosplenomegaly, - - tender epigastric Neurological: Alert and Oriented x 3 Lines/Tubes/Other Access: Clean, Dry and Intact Peripheral IV Nutrition: Taking PO's Result Diagrams: 09/10/18 07:25 09/10/18 07:25 Assess/Plan/Problems-Billing Assessment: 82 year old with metastatic GIST, progressing, now a candidate for palliative care. - Patient Problems (1) GIST (gastrointestinal stromal tumor), malignant Current Visit: Yes Status: Acute Priority: High Code(s): C49.A0 - GASTROINTESTINAL STROMAL TUMOR, UNSPECIFIED SITE SNOMED Code(s): 443043668 Comment: -Discussed prognosis in general with patient -She is still eating, may live for some months. (2) GI hemorrhage Current Visit: Yes Status: Acute Priority: High Code(s): K92.2 - GASTROINTESTINAL HEMORRHAGE, UNSPECIFIED SNOMED Code(s): 56485099 Comment: -HGB is stable today, bleeding has clinically ceased -Discussed fact that if bleeding occurs again, her prognosis will be measured in hours-days -Off warfarin anticoagulation (3) DNR (do not resuscitate) Current Visit: Yes Status: Acute Priority: Medium Comment: -Patient should have hospice consult in AM Status and Disposition: inpatient
[2018-09-10] MEDS: Zolpidem TAB* 5 MG PO SCH (21:50)
[2018-09-11] MEDS: Levothyroxine TAB* 75 MCG TAB PO SCH (05:53)
[2018-09-11] MEDS: B COMPLEX WITH VITAMIN C PO SCH (08:15)
[2018-09-11] MEDS: Losartan TAB* 25 MG PO SCH (08:51)
[2018-09-11] MEDS: Metoprolol Tartrate TAB* 25 MG PO SCH ×2 (08:52→21:23)
[2018-09-11] MEDS: Calcium/Vitamin D TAB 250/125* TAB PO SCH (08:52)
--- NOTE | 2018-09-11 11:13 | PN ---
Progress Note - Progress Note Date of Service: 09/11/18 SOAP: Subjective: []Feeling fine. Very tired. Still feels like she needs O2. Admits to getting a little confused since being admitted. Agrees with recommendation for hospice. Lives with daughter who works multimedia coordinator. Medications: Acetaminophen (Tylenol Tab*) 650 mg PO Q4H PRN PRN Reason: FEVER/PAIN Last Admin: 09/09/18 23:50 Dose: 650 mg Calcium/Vitamin D (Oscal D Tab 250/125*) 2 tab PO DAILY [facility] Last Admin: 09/11/18 08:52 Dose: 2 tab Docusate Sodium (Colace Cap*) 100 mg PO DAILY PRN PRN Reason: CONSTIPATION Enoxaparin Sodium (Lovenox(*)) 30 mg SUBCUT Q24H [facility] Last Admin: 09/10/18 15:10 Dose: 30 mg Levothyroxine Sodium (Synthroid Tab*) 75 mcg PO DAILY@0600 [facility] Last Admin: 09/11/18 05:53 Dose: 75 mcg Losartan Potassium (Cozaar Tab*) 50 mg PO DAILY [facility] Last Admin: 09/11/18 08:51 Dose: 50 mg Metoprolol Tartrate (Lopressor Tab*) 25 mg PO BID [facility] Last Admin: 09/11/18 08:52 Dose: 25 mg Nft: B-Complex With (Vitamin C 1 Cap) 1 cap PO DAILY [facility] Last Admin: 09/11/18 08:15 Dose: Not Given Ondansetron HCl (Zofran Inj*) 4 mg IV Q4H PRN PRN Reason: NAUSEA/VOMITING Oxycodone/Acetaminophen (Percocet 5/325 Tab*) 1 tab PO Q4H PRN PRN Reason: Pain Polyvinyl Alcohol (Polyvinyl Alcohol 1.4% Opth*) 1 drop BOTH EYES . NEEDED PRN PRN Reason: DRY EYE Last Admin: 09/10/18 17:28 Dose: 1 drop Senna (Senokot Tab*) 1 tab PO DAILY PRN PRN Reason: CONSTIPATION Tramadol HCl (Ultram*) 50 mg PO BID PRN PRN Reason: PAIN Zolpidem Tartrate (Ambien Tab*) 5 mg PO BEDTIME [facility] Last Admin: 09/10/18 21:50 Dose: 5 mg Objective: [] Vital Signs Temp Pulse Resp BP Pulse Ox 98.2 F 80 24 155/84 98 09/10/18 23:44 09/11/18 10:08 09/11/18 10:08 09/11/18 10:08 09/11/18 10:08 A&Ox3, forgetful HRI, S1S2 LS clear, resp. rate even and non-labored +BS, abd. round and soft Assessment: []82 year old female with stage IV GIST c/b GIB earlier this month followed as outpatient with multiple transfusions now admitted with CHF and found to have progressive disease. She is slowly improving. Plan: []1. CHF: EF 45% down from prior echo - negative fluid balance, but will switch back to PO loop diuretic to assess stability on home meds overnight - repeat BNP tomorrow - already on ARB, beta-dalia, BP stable and therefore will add spironaldactone to maximize output 2. Afib: rate controlled, cont. current beta dalia dose - no anticoagulation r/t GIB 3. GIB: no evidence for active bleeding, felt r/t AVMs on work-up earlier this month - cont. OFF anti-coagulation d/t risk - follow Hgb 4. GIST: progressive disease with no benefit for additional therapy - recommend hospice, consult with Dr. Ortiz today - suspect her prognosis is <6 mo. though if she has a recurrent bleed it could be much days 5. Hypokalemia: improved on PO replacement - repeat labs tomorrow AM DNR Plan d/c home tomorrow as long as stable on PO meds, hospice sign on later this week hopefully
[2018-09-11] MEDS: Spironolactone TAB* 25 MG PO SCH (11:40)
[2018-09-11] MEDS: Furosemide TAB* 40 MG PO SCH (11:40)
--- NOTE | 2018-09-11 12:00 | CONSULT ---
Palliative / Hospice Consult Ordering Provider: Joel Flores - PCP-Queenie - Subjective Code Status: DNR Advance Directives Location: In Chart MOLST Part A Completed: Yes - on chart MOLST Part E Completed:: Yes - on chart - History or Present Illness History or Present Illness: 82yo female with GIST stage 4 presents with SOB and afib. PMH is significant for GIST which she has had for 18yrs and now with mets and refractory to treatment, CHF, afib, GI bleed(?AVM) in past most recently in early August 2018, cellulitis in left lower leg, CRI, HTN, hypothyroid and BHANU on [facility]. Pt is and lives with her daughter Ml(has 3 children overall), has had 2 TIAs, ex tob/no Etoh/ no drug use. Significant labs Echo EF 45-50% which is from previous study, CT Abd/pelvis anali pleural effusions, multiple pulmonary nodules, liver nodule and mesenteric nodule, H/H 10.1/31, BUN/Cr 14/ .75 egfr 73.8, BNP 614, tprot 6.2, and alb 3.7. Lab Values: Laboratory Last Values WBC 4.7 10^3/uL (3.5-10.8) 09/10/18 07:25 RBC 3.29 10^6 /uL (3.70-4.87) L 09/10/18 07:25 Hgb 10.1 g/dL (12.0-16.0) L 09/10/18 07:25 Hct 31 % (33-41) L 09/10/18 07:25 MCV 93 fL (80-97) 09/10/18 07:25 MCH 31 pg (27-31) 09/10/18 07:25 MCHC 33 g/dL (31-36) 09/10/18 07:25 RDW 17 % (10.5-15) H 09/10/18 07:25 Plt Count 268 10^3/uL (150-450) 09/10/18 07:25 MPV 7.7 fL (7.4-10.4) 09/10/18 07:25 Neut % (Auto) 78.9 % 09/10/18 07:25 Lymph % (Auto) 6.1 % 09/10/18 07:25 [place] % (Auto) 13.5 % 09/10/18 07:25 Eos % (Auto) 1.1 % 09/10/18 07:25 Baso % (Auto) 0.4 % 09/10/18 07:25 Absolute Neuts (auto) 3.7 10^3/ul (1.5-7.7) 09/10/18 07:25 Absolute Lymphs (auto) 0.3 10^3/ul (1.0-4.8) L 09/10/18 07:25 Absolute Monos (auto) 0.6 10^3/ul (0-0.8) 09/10/18 07:25 Absolute Eos (auto) 0.1 10^3/ul (0-0.6) 09/10/18 07:25 Absolute Basos (auto) 0 10^3/ul (0-0.2) 09/10/18 07:25 Absolute Nucleated RBC 0 10^3/ul 09/10/18 07:25 Nucleated RBC % 0.3 09/10/18 07:25 Sodium 141 mmol/L (135-145) 09/10/18 07:25 Potassium 3.9 mmol/L (3.5-5.0) 09/10/18 07:25 Chloride 106 mmol/L (101-111) 09/10/18 07:25 Carbon Dioxide 26 mmol/L (22-32) 09/10/18 07:25 Anion Gap 9 mmol/L (2-11) 09/10/18 07:25 BUN 14 mg/dL (6-24) 09/10/18 07:25 Creatinine 0.75 mg/dL (0.51-0.95) 09/10/18 07:25 Est GFR ( Amer) 89.3 (>60) 09/10/18 07:25 Est GFR (Non-Af Amer) 73.8 (>60) 09/10/18 07:25 BUN/Creatinine Ratio 18.7 (8-20) 09/10/18 07:25 Glucose 123 mg/dL (70-100) H 09/10/18 07:25 Calcium 8.9 mg/dL (8.6-10.3) 09/10/18 07:25 Magnesium 1.9 mg/dL (1.9-2.7) 09/10/18 07:25 Total Bilirubin 1.50 mg/dL (0.2-1.0) H 09/10/18 07:25 AST 42 U/L (13-39) H 09/10/18 07:25 ALT 41 U/L (7-52) 09/10/18 07:25 Alkaline Phosphatase 167 U/L (34-104) H 09/10/18 07:25 B-Natriuretic Peptide 614 pg/mL (<=100) H 09/10/18 07:25 Total Protein 6.2 g/dL (6.4-8.9) L 09/10/18 07:25 Albumin 3.7 g/dL (3.2-5.2) 09/10/18 07:25 Globulin 2.5 g/dL (2-4) 09/10/18 07:25 Albumin/Globulin Ratio 1.5 (1-3) 09/10/18 07:25 Vitamin B12 677 pg/mL (180-914) 09/09/18 10:15 TSH 1.76 mcIU/mL (0.34-5.60) 09/09/18 10:15 - Objective Active Medications: Acetaminophen (Tylenol Tab*) 650 mg PO Q4H PRN PRN Reason: FEVER/PAIN Last Admin: 09/09/18 23:50 Dose: 650 mg Calcium/Vitamin D (Oscal D Tab 250/125*) 2 tab PO DAILY [facility] Last Admin: 09/11/18 08:52 Dose: 2 tab Docusate Sodium (Colace Cap*) 100 mg PO DAILY PRN PRN Reason: CONSTIPATION Enoxaparin Sodium (Lovenox(*)) 30 mg SUBCUT Q24H [facility] Last Admin: 09/10/18 15:10 Dose: 30 mg Furosemide (Lasix Tab*) 40 mg PO DAILY [facility] Last Admin: 09/11/18 11:40 Dose: 40 mg Levothyroxine Sodium (Synthroid Tab*) 75 mcg PO DAILY@0600 [facility] Last Admin: 09/11/18 05:53 Dose: 75 mcg Losartan Potassium (Cozaar Tab*) 50 mg PO DAILY [facility] Last Admin: 09/11/18 08:51 Dose: 50 mg Metoprolol Tartrate (Lopressor Tab*) 25 mg PO BID [facility] Last Admin: 09/11/18 08:52 Dose: 25 mg Nft: B-Complex With (Vitamin C 1 Cap) 1 cap PO DAILY [facility] Last Admin: 09/11/18 08:15 Dose: Not Given Ondansetron HCl (Zofran Inj*) 4 mg IV Q4H PRN PRN Reason: NAUSEA/VOMITING Oxycodone/Acetaminophen (Percocet 5/325 Tab*) 1 tab PO Q4H PRN PRN Reason: Pain Polyvinyl Alcohol (Polyvinyl Alcohol 1.4% Opth*) 1 drop BOTH EYES . NEEDED PRN PRN Reason: DRY EYE Last Admin: 09/10/18 17:28 Dose: 1 drop Senna (Senokot Tab*) 1 tab PO DAILY PRN PRN Reason: CONSTIPATION Spironolactone (Aldactone Tab*) 25 mg PO DAILY [facility] Last Admin: 09/11/18 11:40 Dose: 25 mg Tramadol HCl (Ultram*) 50 mg PO BID PRN PRN Reason: PAIN Zolpidem Tartrate (Ambien Tab*) 5 mg PO BEDTIME [facility] Last Admin: 09/10/18 21:50 Dose: 5 mg Vital Signs: Vital Signs: Temp Pulse Resp BP Pulse Ox 98.2 F 80 24 155/84 98 09/10/18 23:44 09/11/18 10:08 09/11/18 10:08 09/11/18 10:08 09/11/18 10:45 Patient Weight: Weight 82.282 kg Intake and Output: Intake & Output 09/09/18 09/10/18 09/11/18 09/12/18 06:59 06:59 06:59 06:59 Intake Total 1565 2140 1180 Output Total 2600 2800 3050 [facility]1035 -660 -1870 Weight 78.925 kg 83.552 kg 82.282 kg Intake: IV Fluids 65 . 55 NS (0.9%) 10 Oral 1500 2140 1180 Output: Urine 2600 2800 3050 Other: Estimated Void Medium Medium # Bowel Movements 1 1 1 Estimated Stool Amount Small Medium Small # Voids 2 2 ADLs: Meal Record Start: 09/08/18 16: 04 Freq: DAILY@0900,1400,1800 Status: Active Protocol: Created 09/08/18 16:04 System (Rec: 09/08/18 16:04 System [email or web address]) Document 09/09/18 09:00 [id number] (Rec: 09/09/18 15:05 [id number] TELE-C13) Document 09/09/18 14:00 [id number] (Rec: 09/09/18 15:06 [id number] TELE-C13) Document 09/09/18 17:35 [id number] (Rec: 09/09/18 17:35 [id number] TELE-M06) Document 09/10/18 09:00 [id number] (Rec: 09/10/18 10:21 [id number] TELE-C13) Document 09/10/18 14:00 [id number] (Rec: 09/10/18 14:35 [id number] TELE-C13) Document 09/10/18 18:00 [id number] (Rec: 09/10/18 19:18 [id number] TELE-C09) Intake and Output Start: 09/08/18 16: 04 Freq: DAILY@0600,1400,2200 Status: Cancelled Protocol: Created 09/08/18 16:04 System (Rec: 09/08/18 16:04 System [email or web address]) Intake and Output Start: 09/08/18 18: 19 Freq: 06,14,2200 Status: Active Protocol: Created 09/08/18 18:19 [id number] (Rec: 09/08/18 18:19 [facility]-BG12) Document 09/08/18 18:42 [id number] (Rec: 09/08/18 18:42 [id number] TELE-C11) Document 09/08/18 22:00 [id number] (Rec: 09/08/18 22:02 [id number] TELE-C09) Document 09/09/18 01:24 [id number] (Rec: 09/09/18 01:24 [id number] TELE-C13) Document 09/09/18 05:13 [id number] (Rec: 09/09/18 05:14 [id number] TELE-C13) Document 09/09/18 08:30 [id number] (Rec: 09/09/18 08:30 [id number] TELE-M06) Document 09/09/18 14:00 [id number] (Rec: 09/09/18 15:06 [id number] TELE-C13) Document 09/09/18 16:42 [id number] (Rec: 09/09/18 16:42 [id number] TELE-C01) Document 09/09/18 18:32 [id number] (Rec: 09/09/18 18:32 [id number] TELE-C01) Document 09/10/18 03:07 [id number] (Rec: 09/10/18 03:07 [id number] TELE-C13) Document 09/10/18 05:32 [id number] (Rec: 09/10/18 05:33 [id number] TELE-C13) Document 09/10/18 06:27 [id number] (Rec: 09/10/18 06:27 [id number] TELE-C13) Document 09/10/18 14:00 [id number] (Rec: 09/10/18 14:35 [id number] TELE-C13) Document 09/10/18 22:00 [id number] (Rec: 09/10/18 22:33 [id number] TELE-C09) Document 09/11/18 06:00 [id number] (Rec: 09/11/18 06:36 [id number] TELE-C13) Ears/Nose/Mouth/Throat: Clear Oropharnyx Neck: NL Appearance and Movements; NL JVP Cardiovascular: NL Sounds; No Murmurs; No JVD, RRR Respiratory: Symmetrical Chest Expansion and Respiratory Effort Abdominal: No Hepatosplenomegaly, - - tender epigastric Neurological: Alert and Oriented x 3 - Assessment Assessment: 82 yo female with GIST stage 4 and acute CHF exacerbation who is eligible for hospice - Plan Consult Plan (MU): Hospice Plan: Long discussion with pt about hospice. Brochure was also given. Pt is aware that she has a 4 month life expectancy and it maybe shorter if she has another GI bleed. She realizes she is going to be dying soon and wants to be comfortable and have her symptoms managed. She also doesn't want to be a burden to her daughter with whom she lives. I explained that hospice would be a wonderful support for pt and for her daughter. Discussed the residence option and the cost difference if things get too stressful at home but for now she wants to be at home. Also explained that she can sign off of hospice at anytime. Spoke with daughter who works full-time and would like to start with home hospice but may need to pursue other options such as residence or SNF if pt 's care needs increase. Currently they do get meals on wheels and daughter is home in evening to cook & do laundry for her parents. Pt qualifies with diagnosis of stage 4 GIST, CHF and GI bleed. KPS 40%, PPS 50%. - Time On Unit Date of Evaluation: 09/11/18 Hospice Consult Time in: 11:00 Hospice Consult Time Out: 12:30 Hospice Consult Time Total: 90 > 50% of Time Spend In Counseling or Coordinating Care: Yes
[2018-09-11] MEDS: Enoxaparin(*) 30 MG/0.3 ML SYR SUBCUT SCH (15:14)
[2018-09-11] MEDS: Zolpidem TAB* 5 MG PO SCH (21:24)
[2018-09-12] MEDS: Acetaminophen TAB* 325 MG PO PRN (01:54)
[2018-09-12] MEDS: Levothyroxine TAB* 75 MCG TAB PO SCH (05:32)
[2018-09-12 06:04] LABS: ABS Basophils 0 10^3/ul (0-0.2); ABS Eosinophils 0.1 10^3/ul (0-0.6); ABS Lymphocytes 0.4 10^3/ul (1.0-4.8); ABS Monocytes 0.7 10^3/ul (0-0.8); ABS Neutrophils 3.8 10^3/ul (1.5-7.7); ABS Nucleated RBC 0 10^3/ul; Eosinophil % 1.1 %; Hematocrit 31 % (33-41); Hemoglobin 10.2 g/dL (12.0-16.0); Lymphocyte % 7.4 %; Mean Corpuscular HGB Conc 33 g/dL (31-36); Mean Corpuscular Hemoglobin 31 pg (27-31); Mean Corpuscular Volume 93 fL (80-97); Mean Platelet Volume 7.3 fL (7.4-10.4); Nucleated Red Blood Cells % 0; Platelet Count 268 10^3/uL (150-450); Red Cell Distribution Width 18 % (10.5-15); White Blood Count 4.9 10^3/uL (3.5-10.8)
[2018-09-12 06:25] LABS: Albumin 3.6 g/dL (3.2-5.2); Albumin/Globulin Ratio 1.6 (1-3); BUN/Creatinine Ratio 15.8 (8-20); Calcium 9.2 mg/dL (8.6-10.3); EGFR African American 87.9 (>60); EGFR Non-African American 72.7 (>60); Globulin 2.3 g/dL (2-4); Potassium 3.9 mmol/L (3.5-5.0); Total Bilirubin 1.2 mg/dL (0.2-1.0); Total Protein 5.9 g/dL (6.4-8.9)
[2018-09-12] MEDS: Losartan TAB* 25 MG PO SCH (08:35)
[2018-09-12] MEDS: Spironolactone TAB* 25 MG PO SCH (08:36)
[2018-09-12] MEDS: Calcium/Vitamin D TAB 250/125* TAB PO SCH (08:37)
[2018-09-12] MEDS: Furosemide TAB* 40 MG PO SCH (08:37)
[2018-09-12] MEDS: Metoprolol Tartrate TAB* 25 MG PO SCH ×2 (08:42→21:43)
[2018-09-12] MEDS: B COMPLEX WITH VITAMIN C PO SCH (08:58)
--- NOTE | 2018-09-12 10:28 | PN ---
Progress Note - Progress Note Date of Service: 09/12/18 SOAP: Subjective: [She had some difficulty sleeping overnight. No new complaints. She is wary about going home today, feeling that she needs to evaluate her ability to ambulate longer distances today.] Objective: [ Laboratory Results - last 24 hr 09/12/18 09/12/18 09/12/18 05:45 05:45 05:45 WBC 4.9 RBC 3.30 L Hgb 10.2 L Hct 31 L MCV 93 MCH 31 MCHC 33 RDW 18 H Plt Count 268 MPV 7.3 L Neut % (Auto) 77.6 Lymph % (Auto) 7.4 [place] % (Auto) 13.6 Eos % (Auto) 1.1 Baso % (Auto) 0.3 Absolute Neuts (auto) 3.8 Absolute Lymphs (auto) 0.4 L Absolute Monos (auto) 0.7 Absolute Eos (auto) 0.1 Absolute Basos (auto) 0 Absolute Nucleated RBC 0 Nucleated RBC % 0 Sodium 141 Potassium 3.9 Chloride 106 Carbon Dioxide 27 Anion Gap 8 BUN 12 Creatinine 0.76 Est GFR ( Amer) 87.9 Est GFR (Non-Af Amer) 72.7 BUN/Creatinine Ratio 15.8 Glucose 121 H Calcium 9.2 Total Bilirubin 1.20 H AST 40 H ALT 44 Alkaline Phosphatase 167 H B-Natriuretic Peptide 903 H Total Protein 5.9 L Albumin 3.6 Globulin 2.3 Albumin/Globulin Ratio 1.6 Acetaminophen (Tylenol Tab*) 650 mg PO Q4H PRN PRN Reason: FEVER/PAIN Last Admin: 09/12/18 01:54 Dose: 650 mg Calcium/Vitamin D (Oscal D Tab 250/125*) 2 tab PO DAILY [facility] Last Admin: 09/12/18 08:37 Dose: 2 tab Docusate Sodium (Colace Cap*) 100 mg PO DAILY PRN PRN Reason: CONSTIPATION Enoxaparin Sodium (Lovenox(*)) 30 mg SUBCUT Q24H [facility] Last Admin: 09/11/18 15:14 Dose: 30 mg Furosemide (Lasix Tab*) 40 mg PO DAILY [facility] Last Admin: 09/12/18 08:37 Dose: 40 mg Levothyroxine Sodium (Synthroid Tab*) 75 mcg PO DAILY@0600 [facility] Last Admin: 09/12/18 05:32 Dose: 75 mcg Losartan Potassium (Cozaar Tab*) 50 mg PO DAILY [facility] Last Admin: 09/12/18 08:35 Dose: 50 mg Metoprolol Tartrate (Lopressor Tab*) 25 mg PO BID [facility] Last Admin: 09/12/18 08:42 Dose: 25 mg Nft: B-Complex With (Vitamin C 1 Cap) 1 cap PO DAILY [facility] Last Admin: 09/12/18 08:58 Dose: Not Given Ondansetron HCl (Zofran Inj*) 4 mg IV Q4H PRN PRN Reason: NAUSEA/VOMITING Oxycodone/Acetaminophen (Percocet 5/325 Tab*) 1 tab PO Q4H PRN PRN Reason: Pain Polyvinyl Alcohol (Polyvinyl Alcohol 1.4% Opth*) 1 drop BOTH EYES . NEEDED PRN PRN Reason: DRY EYE Last Admin: 09/10/18 17:28 Dose: 1 drop Senna (Senokot Tab*) 1 tab PO DAILY PRN PRN Reason: CONSTIPATION Spironolactone (Aldactone Tab*) 25 mg PO DAILY [facility] Last Admin: 09/12/18 08:36 Dose: 25 mg Tramadol HCl (Ultram*) 50 mg PO BID PRN PRN Reason: PAIN Zolpidem Tartrate (Ambien Tab*) 5 mg PO BEDTIME [facility] Last Admin: 09/11/18 21:24 Dose: 5 mg Vital Signs: Temp Pulse Resp BP Pulse Ox 97.2 F 84 16 156/83 97 09/12/18 07:40 09/12/18 07:40 09/12/18 08:00 09/12/18 07:40 09/12/18 07:40 Exam: Gen: 82 yo female in NAD HEENT: geographic tongue, no thrush CV: RRR, no m/r/g Resp: few crackles at lung bases Abd: soft, nonTTP Ext: no LE edema Skin: no rash] [Assessment: []82 year old female with stage IV GIST c/b GIB earlier this month followed as outpatient with multiple transfusions now admitted with CHF and found to have progressive disease. Plan: []1. CHF: EF 45% down from prior echo - BNP wendy when switched from IV to po diuretics - increase lasix to 60 mg bid (per pt home dose was 60q am, 40mg q afternoon, 40 mg q evening prn JVD) - cont spironolactone - cont ARB, beta-dalia 2. Afib: rate controlled, cont. current beta dalia dose - no anticoagulation r/t GIB 3. GIB: no evidence for active bleeding, felt r/t AVMs on work-up earlier this month - cont. OFF anti-coagulation d/t risk - follow Hgb 4. GIST: progressive disease with no benefit for additional therapy - recommend hospice, consult with Dr. Ortiz yesterday - suspect her prognosis is <6 mo. though if she has a recurrent bleed it could be reduced to days to weeks 5. Hypokalemia: improved on PO replacement DNR Dispo: Plan d/c with Hospice tomorrow - home v residence - patient would like to return home with her daughter, while her daughter appears interested in the residence
[2018-09-12] MEDS ORDERED: Furosemide TAB* 20 MG PO ONE (10:43)
[2018-09-12] MEDS: Enoxaparin(*) 30 MG/0.3 ML SYR SUBCUT SCH (17:38)
[2018-09-12] MEDS: Zolpidem TAB* 5 MG PO SCH (21:43)
[2018-09-12] MEDS: Furosemide TAB* 20 MG PO SCH (21:43)
[2018-09-13] MEDS: Levothyroxine TAB* 75 MCG TAB PO SCH (06:11)
[2018-09-13] MEDS: B COMPLEX WITH VITAMIN C PO SCH (08:15)
[2018-09-13] MEDS: Spironolactone TAB* 25 MG PO SCH (08:17)
[2018-09-13] MEDS: Furosemide TAB* 20 MG PO SCH (08:17)
[2018-09-13] MEDS: Losartan TAB* 25 MG PO SCH (08:18)
[2018-09-13] MEDS: Metoprolol Tartrate TAB* 25 MG PO SCH (08:18)
[2018-09-13] MEDS: Calcium/Vitamin D TAB 250/125* TAB PO SCH (08:18)
[2018-09-13 08:27] VITALS: BP 147/72
--- NOTE | 2018-09-14 17:24 | DS ---
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 CHF: stable on diuretics Discharge Medications: Home Medications Medication Instructions Recorded Confirmed Type B-Complex with Vitamin C [Vitamin 1 cap PO DAILY 07/21/12 09/08/18 History B-Complex with Vit C] Losartan Potassium 50 mg PO DAILY 07/21/12 09/08/18 History Levothyroxine TAB* [Synthroid 25 75 mcg PO DAILY 11/21/14 09/08/18 History MCG TAB*] Calcium/Vitamin D TAB 250/125* 500 mg PO DAILY 09/02/15 09/08/18 History [Oscal D TAB 250/125*] Propylene Glycol [Systane Balance] 1 - 2 drop BOTH EYES Q2HR PRN 09/02/15 History Acetaminophen [Acetaminophen Extra 500 mg PO DAILY 08/31/18 09/08/18 History Strength] Sennosides/Docusate Sodium [Eq 1 each PO SEE INSTRUCTIONS PRN 08/31/18 09/08/18 History Senna-S Tablet] Tramadol HCl 50 mg PO BID PRN 08/31/18 09/08/18 History Furosemide TAB* [Lasix TAB*] 60 mg PO BID #60 tab 09/12/18 Rx Levothyroxine TAB* [Synthroid 75 75 mcg PO DAILY #30 tab 09/12/18 Rx MCG TAB*] Metoprolol Tartrate TAB* 25 mg PO BID #60 tab 09/12/18 Rx [Lopressor TAB*] Spironolactone TAB* [Aldactone TAB 25 mg PO DAILY #30 tab 09/12/18 Rx 25 MG*] Ambien 5 mg PO qHS PRN sleep Comfort pack per Hospice Dispo: stable Diet: for comfort Activity: as tolerated Hospital Course: Please see admission note for full H&P, however, briefly, Mrs. Lang is well known to our service due to her diagnosis of GIST. She has recently been admitted with a GI bleed (felt 2/2 AVMs seen in past on capsule study as no acute source on EGD and colonoscopy) and has been managed as an outpatient with PRN blood transfusions. On 09/08 she presented to the office with increasing SOB and was admitted for CHF exacerbation. An echo revealed decreased EF of 45 % and she was given IV diuretics. A CT scan done as part of her work-up revealed progressive GIST and the recommendation for transition to hospice was made. She was seen in consultation by palliative care, Dr. Ortiz, on 09/10 and plan to d/c home with hospice was made. Discharge was delayed slightly for increase diuretic management however today, she is ready for d/c. At this time she is stable for d/c home and will have hospice in sign on in short order. Her prognosis is measured in months unless she has a recurrent GI bleed in which case it would considerably shorter, she is aware of this. Her daughter has been involved in her care plan and will be her primary child daycare worker in the home. Mrs. Lang may ambulate as tolerated and has no restrictions in her diet. She will not require outpatient f/u in preference for comfort measures only with home hospice.
== END 2018-09-13 09:25 | disposition hospice, home (50) | DRG 291 ==
LOC: MEDTELE 16:00
PROVIDERS: ADMIT Internal Medicine Hematology & Oncology; ATTEND Internal Medicine Hematology & Oncology
DX: I13.0 Hypertensive heart and chronic kidney disease with heart failure and stage 1 through stage 4 chronic kidney disease, or unspecified chronic kidney disease (principal); I50.33 Acute on chronic diastolic (congestive) heart failure; C49.A2 Gastrointestinal stromal tumor of stomach; C17.9 Malignant neoplasm of small intestine, unspecified; C79.9 Secondary malignant neoplasm of unspecified site; Z66 Do not resuscitate; I48.91 Unspecified atrial fibrillation; G47.33 Obstructive sleep apnea (adult) (pediatric); E05.90 Thyrotoxicosis, unspecified without thyrotoxic crisis or storm; N18.3 Chronic kidney disease, stage 3 (moderate); Z88.1 Allergy status to other antibiotic agents; Z88.0 Allergy status to penicillin; Z90.89 Acquired absence of other organs; Z80.52 Family history of malignant neoplasm of bladder; Z80.1 Family history of malignant neoplasm of trachea, bronchus and lung; Z80.6 Family history of leukemia; Z83.3 Family history of diabetes mellitus; Z82.49 Family history of ischemic heart disease and other diseases of the circulatory system; Z51.5 Encounter for palliative care; E87.6 Hypokalemia
CPT/HCPCS: 36415; 71275; 74177; 80053; 82607; 83735; 83880; 84443; 85025; 93306; 99223; 99232; 99233; 99238; A9270-GY; G8978-GP-CI; G8979-GP-CI; G8980-GP-CI; J1650; J1940; Q9967